=== PATIENT | male | born 1985 | race Caucasian/White ===

== ENCOUNTER 2018-09-26 14:36 | Emergency (ER) | payer OTHER ==
[2018-09-26] MEDS ORDERED: NAPROXEN 250 MG TABLET PO STA (17:57)
[2018-09-26] MEDS ORDERED: diazePAM 5 MG TABLET PO STA (17:57)
--- NOTE | 2018-09-26 18:07 | ED Physician Documentation ---
PD HPI BACK PAIN - Stated complaint Stated Complaint: BACK PX - Chief complaint Chief Complaint: Back Pain - Additional information Additional information: 33-year-old male presents the emergency department with lower back pain which started this afternoon while bathing his dog. The patient denies saddle anesthesia, urinary retention, overflow incontinence, hematuria, lower leg weakness, hematuria, fever or IV drug use. No attempts at symptom management. No other associated symptoms. Review of Systems Constitutional: denies: Fever, Chills Eyes: denies: Discharge Cardiac: denies: Chest pain / pressure GI: denies: Abdominal Pain : denies: Incontinent, Hematuria Skin: denies: Laceration (s) Musculoskeletal: reports: Back pain Neurologic: denies: Generalized weakness, Focal weakness, Numbness PD PAST MEDICAL HISTORY - Past Surgical History Ortho: Other - Present Medications Home Medications: Ambulatory Orders Medication Instructions Recorded Confirmed Naproxen 500 mg PO BID PRN #60 tablet 09/26/18 diazePAM [Valium] 5 mg PO TID PRN #15 tablet 09/26/18 - Allergies Allergies/Adverse Reactions: Allergies Allergy/AdvReac Type Severity Reaction Status Date / Time No Known Drug Allergies Allergy Verified 09/26/18 15:15 - Social History Does the pt smoke?: No Smoking Status: Never smoker Does the pt drink ETOH?: Yes Does the pt have substance abuse?: No PD ED PE NORMAL - General General: Alert and oriented X 3, No acute distress - HEENT HEENT: Atraumatic, PERRL, EOMI, Ears normal - Abdomen Abdomen: Soft, Non tender - Back Back: Other (No bony tenderness of the spine, tenderness in the paraspinal muscles, No skin changes or crepitus) - Derm Derm: Normal color - Extremities Extremities: No deformity, No tenderness to palpate - Neuro Neuro: Alert and oriented X 3, 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 Normal motor strength in lower extremities and normal sensation) Results - Vitals Vitals: Vital Signs - 24 hr 09/26/18 15:10 Temperature 36.8 C Heart Rate 101 H Respiratory 16 Rate Blood Pressure 119/78 O2 Saturation 97 Oxygen O2 Source Room air PD MEDICAL DECISION MAKING - ED course ED course: The patient has no red flags to suggest cauda equina or epidural abscess and presently there is no emergent indication for MRI. Presently the patient appears appropriate for discharge and ongoing outpatient management. The patient will be treated symptomatically. I recommended follow-up with primary care for physical therapy and possibly an outpatient MRI. The patient will return to the emergency department for any worsening or any concerns Departure - Departure Disposition: 01 Home, Self Care Clinical Impression: Lumbar strain Qualifiers: Encounter type: initial encounter Qualified Code(s): S39.012A - Strain of muscle, fascia and tendon of lower back, initial encounter Condition: Good Instructions: ED Sprain Strain Lumbar Follow-Up: GUANACO MCGREGOR MD [Primary Care Provider] - Within 1 week (Please have your primary arrange for outpatient physical therapy. If your symptoms not improving you may need an outpatient MRI) Prescriptions: diazePAM [Valium] 5 mg PO TID PRN #15 tablet PRN Reason: Spasms Naproxen 500 mg PO BID PRN #60 tablet PRN Reason: Pain Comments: Please return to the emergency department for any worsening or any concerns
[2018-09-26 18:14] VITALS: BP 188/64
== END 2018-09-26 18:15 | disposition home or self-care (01) ==
LOC: ED 14:36
DX: S39.012A Strain of muscle, fascia and tendon of lower back, initial encounter (principal); X58.XXXA Exposure to other specified factors, initial encounter; Y93.K3 Activity, grooming and shearing an animal
CPT/HCPCS: 99283; A9270

== ENCOUNTER 2022-04-06 15:10 | Outpatient (CLI) | payer OTHER ==
--- NOTE | 2022-04-06 16:59 | MRI Report ---
PROCEDURE: Lumbar Spine W/O INDICATIONS: RADICULOPATHY TECHNIQUE: Noncontrast sagittal T1 spin echo and T2 fast echo, sagittal STIR, axial T1 and T2 fast spin echo thr ough the lumbar spine. In cases with scoliosis, additional coronal T2 fast spin echo may be performe d. COMPARISON: None. FINDINGS: Image quality: Excellent. Alignment and Curvature: There is normal bony alignment. Bone Marrow: Marrow is of normal overall signal. No acute vertebral body compression fractures. Ve rtebral hemangiomas noted in the L4 vertebral body. Probable benign osteoma the left iliac bone measu res 1 cm Spinal Cord: Conus medullaris terminates at the L1 level. Visualized cord demonstrates normal signa l and size. Paraspinous Soft Tissues: No paravertebral masses. T12-L1: Normal in appearance. L1-L2: Normal in appearance. L2-L3: Mild circumferential disc bulge results in mild central and no foraminal stenosis L3-L4: Mild circumferential disc bulge with mild central and mild bilateral foraminal stenosis grea ter on the left L4-L5: Disc space narrowing with cervical disc bulge and hypertrophic facet joints combine to resul t in moderate central stenosis. Moderate bilateral foraminal stenosis greater on the left L5-S1: Circumferential disc bulge is asymmetric to the right which minimally effaces the right late ral recess and displaces the descending nerve root. No foraminal stenosis. IMPRESSION: 1. Multilevel degenerative disc disease and arthropathy results in varying degrees of central and for aminal stenosis including moderate bilateral foraminal stenosis at L4-5 and right lateral recess effa cement at L5-S1 Reviewed by: Kamari Leone MD on 04/06/2022 3:57 PM DAVID Approved by: Kamari Leone MD on 04/06/2022 3:57 PM DAVID Station ID: [id number]
== END 2022-04-06 15:11 | disposition home or self-care (01) ==
LOC: DI 15:10
PROVIDERS: ATTEND Student in an Organized Health Care Education/Training Program
DX: M47.26 Other spondylosis with radiculopathy, lumbar region (principal); M48.061 Spinal stenosis, lumbar region without neurogenic claudication